=== PATIENT | female | born 1975 | race Caucasian/White ===

== ENCOUNTER 2017-12-27 10:28 | Day surgery (SDC) | payer OTHER ==
--- NOTE | 2017-12-25 18:14 | HP ---
HISTORY AND PHYSICAL: DATE OF ADMISSION/SURGERY: 12/27/17 [facility] SURGEON: Dr. Ninfa Hawkins.* (DICTATED BY KWASI NEAL) PROCEDURE: Left long finger excision of mass. CHIEF COMPLAINT: Left middle finger pain. HISTORY OF PRESENT ILLNESS: Breonna Gómez is a pleasant 42-year-old female, who was seen previously for a small cystic mass on the volar aspect of her left middle finger, which had been present for a couple of years, has been gradually getting larger and smaller over time. She was previously scheduled for surgery ; however, due to an illness, she had to reschedule. She presents today for a history and physical. She has pain when she reaches and grabs things. Her pain is about a 1/10. She does not have any numbness or tingling associated with the mass. No history of injury. PAST MEDICAL HISTORY: Kidney stones. PAST SURGICAL HISTORY: Lithotripsy in 2005. MEDICATIONS: She is not taking any current medications. ALLERGIES: No known drug allergies. Denies allergy to adhesives or tapes. FAMILY MEDICAL HISTORY: Father with diabetes. SOCIAL HISTORY: She denies any tobacco use. She does drink alcohol occasionally and no illicit drug use. REVIEW OF SYSTEMS: Positive for her current complaints. Otherwise, a review of systems including general, HEENT, integumentary, cardiothoracic, pulmonary, GI, , musculoskeletal, neurological, endocrinologic, hematologic, and infectious disease were negative. PHYSICAL EXAMINATION GENERAL: Well-nourished, well-developed, 42-year-old female, in no acute distress. Alert and oriented x3 with no gross neurologic deficiencies, and ambulating without a limp. VITAL SIGNS: Height 66 inches, weight 181 pounds, pulse 86, blood pressure 118/ 78, respirations 16, temperature 97.2, pain level is 0/10, BMI 29.2. HEENT: Normocephalic, atraumatic. PERRLA. EOMI. NECK: Supple. No palpable cervical lymph nodes. Thyroid is smooth and nontender. PULMONARY: Lungs clear to auscultation bilaterally with no wheezes, rhonchi, or rales. CARDIAC: Regular rate and rhythm. No murmurs, rubs, or gallops. No pedal edema. 2+ left radial pulse. MUSCULOSKELETAL: Left upper extremity, skin is intact with no bruising or swelling. She has a cystic mass at the MP flexion crease of her left middle finger. This is tender to palpation. Negative Tinel's sign. Full range of motion with her fingers. Neurovascular function is intact distally. IMPRESSION: Left middle finger ganglion cyst. PLAN: Breonna Gómez is scheduled to undergo left long finger excision mass with Dr. Hawkins on 12/27/17. The surgical procedure, risks, and benefits were explained at her last appointment and discussed again today. She has agreed to proceed with the procedure. She will be seen back in clinic 10 days postoperatively and pain medication will be prescribed on the day of surgery. KWASI NEAL [id number] #: [id number] MTDD
[~2017-12-27 10:28] MED LIST: Buffered Lidocaine 0.9% SYRIN* 5 ML/SYR SYRINGE INTRADERM ONE
[2017-12-27] MEDS ORDERED: Lidocaine 1% INJ* 10 MG/ML 30 ML SDV ONE (12:02)
[2017-12-27 12:40] VITALS: BP 116/65
--- NOTE | 2017-12-28 11:38 | OP ---
DATE OF OPERATION: 12/27/17 [facility] DATE OF : 75 SURGEON: Ninfa goodman MD. PRODUCTION STATISTICAL CLERK: KWASI Palacios. ANESTHESIA: Local. PRE-OP DIAGNOSIS: Left long finger mass. POST-OP DIAGNOSIS: Left long finger mass. OPERATIVE PROCEDURE: Removal of left long finger mass. ESTIMATED BLOOD LOSS: Zero. TOURNIQUET TIME: About 10 minutes. INDICATIONS FOR PROCEDURE: Breonna is a 42-year-old female with a painful mass at the MP flexion crease of her left middle finger. She presents for removal. DESCRIPTION OF PROCEDURE: The patient was brought to the operating room, was given a local anesthetic with 10 cc of 1% plain lidocaine in the palm of her left hand. The skin of her left hand and forearm was prepped and draped in the usual sterile fashion. The hand and forearm were exsanguinated and the tourniquet elevated to 250 mmHg. A transverse incision was made centered over the mass and we dissected bluntly. Through the subcutaneous tissue, the digital neuro-vascular bundles were retracted. The mass was a ganglion cyst emanating from the flexor tendon sheath. It was removed with the small portion of the flexor tendon sheath and then the wound was irrigated. Skin edges were reapproximated with 4-0 nylon suture. The wound was dressed with Xeroform, 4 x 4, Webril, and Coban. The patient tolerated the procedure well and was brought to the recovery room in good condition. [id number]/CPS #: [id number] MTDD
== END 2017-12-27 12:35 | disposition home or self-care (01) ==
LOC: OREAST 10:28
PROVIDERS: ATTEND Orthopaedic Surgery
DX: M67.442 Ganglion, left hand (principal)
CPT/HCPCS: 88304

== ENCOUNTER 2018-03-18 12:58 | Emergency (ER) | payer OTHER ==
[2018-03-18 13:28] VITALS: BP 119/76
--- NOTE | 2018-03-18 13:57 | UC ---
FLU HPI - HPI Summary HPI Summary: 43 y/o female with no PMH, + flu/ PNA this season, symptoms starting saturday with chest tightness, fullness, worse on right, saturday fever, chlls, achews, fatigue, worsening past few days, saturday right sided sinus congestion, ear fullness, + cough- productive- yellow sputum. vomiting over weekend x 1 otherwise no abdominal/ GI complaints. mild throat pain. no recent abx, meds - History of Current Complaint Chief Complaint: UCGeneralIllness Stated Complaint: CONGESTED Time Seen by Provider: 03/18/18 13:37 Hx Obtained From: Patient Hx Last Menstrual Period: 02/23/18 ?: No Onset/Duration: Gradual Onset, Lasting Days Severity Currently: Mild Severity Initially: Moderate Pain Intensity: 0 Pain Scale Used: 0-10 Numeric - Allergy/Home Medications Allergies/Adverse Reactions: Allergies Allergy/AdvReac Type Severity Reaction Status Date / Time No Known Allergies Allergy Verified 03/18/18 13:05 Home Medications: Home Medications Guaifenesin/Dextromethorphan [Mucinex Dm ER 600-30 mg Tablet] 1 each PO ONCE 12/05 [History Confirmed 03/18/18] Linaclotide [Linzess] 72 mcg PO DAILY 03/18/18 [History Confirmed 03/18/18] Progesterone, Micronized [Progesterone] 200 mg PO DAILY 03/18/18 [History Confirmed 03/18/18] PMH/Surg Hx/FS Hx/Imm Hx Previously Healthy: Yes - Surgical History Surgical History: Yes Surgery Procedure, Year, and Place: TONSILLECTOMY. KIDNEY STONE 2008 - Family History Known Family History: Positive: None - Social History Alcohol Use: Rare Substance Use Type: None Smoking Status (MU): Never Smoked Tobacco Household Exposure Type: Cigarettes Review of Systems Constitutional: Fever, Chills, Fatigue ENT: Ear Ache, Sinus Congestion Respiratory: Cough Gastrointestinal: Negative Genitourinary: Negative Motor: Negative Neurovascular: Negative Musculoskeletal: Negative Neurological: Negative Psychological: Negative Is Patient Immunocompromised?: No All Other Systems Reviewed And Are Negative: Yes Physical Exam Triage Information Reviewed: Yes Appearance: No Pain Distress, Well-Nourished, Ill-Appearing - mild Vital Signs: Initial Vital Signs Temp 99.3 F 03/18/18 13:22 Pulse 106 03/18/18 13:22 Resp 18 03/18/18 13:22 BP 119/76 03/18/18 13:22 Pulse Ox 99 03/18/18 13:22 Eyes: Positive: Conjunctiva Clear ENT: Positive: Pharyngeal erythema - mild no exudates, Nasal congestion - R>L, TM bulging, TM dull, TM red - R only, fluid behind TM, TM bulging., Sinus tenderness - R sided. Negative: Nasal drainage, Tonsillar swelling, Tonsillar exudate, Dental tenderness Neck: Positive: Supple, Nontender, No Lymphadenopathy Respiratory: Positive: Chest non-tender, Lungs clear, Normal breath sounds, No respiratory distress, No accessory muscle use. Negative: Crackles, Rhonchi, Stridor, Wheezing Cardiovascular: Positive: RRR, No Murmur, Pulses Normal Abdomen Description: Positive: Nontender, No Organomegaly, Soft, Bruit. Negative: CVA Tenderness (R), CVA Tenderness (L) Neurological Exam: Normal Skin Exam: Normal Flu Course/Dx - Course Course Of Treatment: sinusitis, possible CAP. ABX, work note - Differential Dx/Diagnosis Differential Diagnosis/HQI/PQRI: Bronchitis, Influenza, Pneumonia Provider Diagnoses: Sinusitis Discharge - Sign-Out/Discharge Documenting (check all that apply): Discharge/Admit/Transfer - Discharge Plan Condition: Fair Disposition: HOME Prescriptions: Levofloxacin TAB* [Levaquin 500 Tab*] 500 mg PO DAILY #7 tab Patient Education Materials: Sinusitis (ED) Forms: *Work Release Referrals: Soo Mercer MD [Primary Care Provider] - Additional Instructions: - Increase fluid intake -= Follow up with primary within 3-5 days for re-evaluation - REturn to ER with shortness of breath, increased fever, chills - Antibiotics as prescribed - increase rest - Billing Disposition and Condition Condition: FAIR Disposition: HOME
== END 2018-03-18 14:02 | disposition home or self-care (01) ==
LOC: UCEAST 12:58
DX: J32.9 Chronic sinusitis, unspecified (principal)
CPT/HCPCS: 93005; 99212; G0463

== ENCOUNTER 2019-04-02 14:09 | Emergency (ER) | payer OTHER ==
[2019-04-02 14:44] VITALS: BP 121/75
--- NOTE | 2019-04-02 15:10 | UC ---
Knee Pain HPI - HPI Summary HPI Summary: Moving x 2 weeks ago, and aware that she twisted her left knee while lifting and twisting to carry a bag of items. Pain medial knee, minimal swelling, with worsening pain over the past several days. Difficulty ascending stairs with progressive problem bending the knee. Pain is sharp, not relieved by ibuprofen 600mg twice daily x 3 days, acetaminophen, ice, or rest. Sleep disrupted. - History of Current Complaint Chief Complaint: UCLowerExtremity Stated Complaint: KNEE INJURY Time Seen by Provider: 04/02/19 14:59 Hx Obtained From: Patient Hx Last Menstrual Period: 3 weeks Onset/Duration: Gradual Onset - acute injury, gradually worsening. Severity Initially: Moderate Severity Currently: Moderate Pain Intensity: 5 Character: Aching, Throbbing Aggravating Factor(s): Movement, Weight Bearing, Prolonged Standing, Stairs Alleviating Factor(s): Position Associated Signs And Symptoms: Negative: Swelling, Redness, Bruising, Weakness, Numbness, Tingling - Risk Factors Septic Arthritis Risk Factor: Negative Gout Risk Factor: Negative - Allergies/Home Medications Allergies/Adverse Reactions: Allergies Allergy/AdvReac Type Severity Reaction Status Date / Time No Known Allergies Allergy Verified 04/02/19 14:45 PMH/Surg Hx/FS Hx/Imm Hx Previously Healthy: Yes Cardiovascular History: Other - recent evaluation of PVC's, started metoprolol - Surgical History Surgical History: Yes Surgery Procedure, Year, and Place: TONSILLECTOMY. KIDNEY STONE 2008 - Family History Known Family History: Positive: None, Non-Contributory - Social History Occupation: Employed Part-time - facilities at [employer] Lives: With Family Alcohol Use: Rare Substance Use Type: None Smoking Status (MU): Never Smoked Tobacco Household Exposure Type: Cigarettes Review of Systems All Other Systems Reviewed And Are Negative: Yes Constitutional: Positive: Negative Skin: Positive: Negative Eyes: Positive: Negative ENT: Positive: Negative Respiratory: Positive: Negative Cardiovascular: Positive: Palpitations Genitourinary: Positive: Negative Motor: Positive: Decreased ROM Neurovascular: Positive: Negative Musculoskeletal: Positive: Arthralgia Neurological: Positive: Negative Psychological: Positive: Negative Is Patient Immunocompromised?: No Physical Exam Triage Information Reviewed: Yes Appearance: Well-Appearing, Pain Distress - moderate, Obese Vital Signs: Initial Vital Signs Temp 99.7 F 04/02/19 14:40 Pulse 88 04/02/19 14:40 Resp 16 04/02/19 14:40 BP 121/75 04/02/19 14:40 Pulse Ox 98 04/02/19 14:40 ENT: Positive: Normal ENT inspection Neck: Positive: Supple, Nontender Respiratory: Positive: Lungs clear, Normal breath sounds Cardiovascular: Positive: RRR - occasional delayed beat, No Murmur Musculoskeletal Exam: Other - medial joint line tenderness left knee. No effusion. Musculoskeletal: Positive: Strength Intact, ROM Limited @ - left knee, Other: - Negative Lachmann's. Pain medial joint with stress--+ MacMurray's Neurological: Positive: Alert, Muscle Tone Normal Psychological Exam: Normal Knee Pain Course/Dx - Course Course Of Treatment: PT and orthor referral, likely has meniscal tear. Meloxicam as nsaid - Differential Dx/Diagnosis Differential Diagnosis/HQI/PQRI: Contusion, Patellofemoral Syndrome, Sprain, Other - meniscal tear Provider Diagnosis: Knee pain, left Discharge - Sign-Out/Discharge Documenting (check all that apply): Patient Departure All imaging exams completed and their final reports reviewed: No Studies - Discharge Plan Condition: Stable Disposition: HOME Prescriptions: Meloxicam [Mobic] 7.5 mg PO BID PRN #20 tablet PRN Reason: Pain Patient Education Materials: Meniscus Tear (ED) Referrals: Soo Mercer MD [Primary Care Provider] - Shawn Khanna MD [Medical Doctor] - Additional Instructions: your findings are most consistent with a medial meniscus tear. You can try use of meloxicam as an antiinflammatory which is less likely to cause stomach upset. You have a referral to physical therapy and to orthopedics for assessment - Billing Disposition and Condition Condition: STABLE Disposition: Home
== END 2019-04-02 15:40 | disposition home or self-care (01) ==
LOC: UCEAST 14:09
DX: M25.562 Pain in left knee (principal); I49.3 Ventricular premature depolarization
CPT/HCPCS: 99212; G0463